=== PATIENT | female | born 1950 | race Caucasian/White ===

== ENCOUNTER 2018-06-09 09:41 | Outpatient (CLI) | payer BC ==
[~2018-06-09 09:41] MED LIST: Iopamidol 370 76% 100 ML VIAL ONE
--- NOTE | 2018-06-09 15:20 | CT ---
CHEST CT WITH CONTRAST 06/09/18 COMPARISON: 11/19/16, 06/26/16. HISTORY: Posterior left neck squamous cell carcinoma. Post treatment exam. TECHNIQUE: Postcontrast chest CT is performed in the axial plane. Coronal reformatted images are submitted. FINDINGS: No mediastinal mass, lymphadenopathy, or hematoma. Heart size is within normal limits. No significant pericardial fluid. Calcification of the mitral annulus. Central pulmonary arteries have appropriate contrast opacification. No filling defect to suggest thromboembolism. The thoracic aorta and upper ab dominal aorta has a normal caliber. No periaortic fat stranding. CT evidence of cholelithiasis without evidence of cholecystitis. The visualized upper solid organs ar e unremarkable. Trachea and central bronchi are patent. Lungs are clear of any mass or consolidation. Dependent atelectatic changes and chronic changes of th e lung apices are noted. No pneumothorax or osseous abnormalities. IMPRESSION: Unremarkable postcontrast chest CT. POS: [facility]
--- NOTE | 2018-06-09 15:23 | CT ---
CT NECK SOFT TISSUE WITH CONTRAST: HISTORY: Cancer staging. Squamous cell carcinoma of the scalp. COMPARISON: 11/19/2016 and 06/26/2016 FINDINGS: There is appropriate enhancement of the brain parenchyma. Bilateral ocular lenses are appropriately located. Both globes are intact. Retrobulbar fat is preserved. Symmetric attenuation of the optic nerves and ocular rectus muscles. Adequate aeration of the paranasal sinuses. There is adequate aeration of the right mastoid air cell s. There is complete opacification of the left mastoid air cells. The nasopharynx is unremarkable. The oral cavity is unremarkable. Limited evaluation of the oral ca vity due to dental amalgam artifact. Midline fatty raphe of the tongue appears to be preserved. The epiglottis has a normal caliber. There is atrophy and fatty replacement of the left parotid gland, which appears to have developed sin ce the prior examination. Symmetric attenuation of the submandibular glands. The thyroid gland is u nremarkable. There is stranding of the subcutaneous fat and loss of the normal fat planes involving the lateral an d posterior left aspect of the neck, presumed to be due to post treatment/postsurgical change. There is no evidence of lymphadenopathy by size criteria. No abnormal enhancement or enhancing masses. Grossly, the great vessels of the neck are patent. Evaluation is limited by technique. The upper mediastinum and lung apices are unremarkable. Refer to separate chest CT report for furthe r details. There are degenerative changes of the cervical spine. Anterolisthesis of C3 upon C4 and C4 upon C5 i s presumed to be due to chronic change. No evidence of fracture. IMPRESSION: 1. Postsurgical/posttreatment changes involving the posterior left neck. 2. No evidence of lymphadenopathy by size criteria. 3. The previously noted left neck mass is not evident on the current examination. POS: [facility]
== END 2018-06-09 09:42 | disposition home or self-care (01) ==
LOC: SCSCT 09:41
PROVIDERS: ATTEND Radiology Radiation Oncology
DX: C44.42 Squamous cell carcinoma of skin of scalp and neck (principal); C77.0 Secondary and unspecified malignant neoplasm of lymph nodes of head, face and neck; Z98.890 Other specified postprocedural states
CPT/HCPCS: 70491; 71260; 82565